=== PATIENT | female | born 1950 | race Two or more races ===

== ENCOUNTER 2021-06-17 06:53 | Day surgery (SDC) | payer OTHER ==
[~2021-06-17 06:53] MED LIST: ELIQUIS2.5 MG PO; GABAPENTIN800 M1 PO; HUMALOG100 UNIT/2; LANTUS SOL100 UNIT/1; SIMVASTATIN40 MG PO; TAMOXIFEN CITRA20 MG PO; ZESTRIL5 MG PO; [UNRECOGNIZED DRUG - OTHER]
[2021-06-17] MEDS ORDERED: BACTRIM DS TAB1 EACH PO (12:50)
[2021-06-17] MEDS ORDERED: OXYC1TAB9 PO (12:50)
== END 2021-06-17 16:50 | disposition home or self-care (01) ==
LOC: CIR.AMB 06:53
PROVIDERS: ATTEND Orthopaedic Surgery Sports Medicine
DX: M75.122 Complete rotator cuff tear or rupture of left shoulder, not specified as traumatic (principal); M75.02 Adhesive capsulitis of left shoulder; Z20.822 Contact with and (suspected) exposure to COVID-19